=== PATIENT | female | born 1965 | race Caucasian/White ===

== ENCOUNTER → 2018-12-21 16:29 | Outpatient (CLI) | payer MEDICAID, SELFPAY ==
[2018-12-21 17:07] LABS: D-Dimer Quantitative (DVT/PE) < 0.27 FEU/ug/m (0.27-0.49)
== END ==
PROVIDERS: Family Provider Family Medicine; PCP Family Medicine; Referring Provider Family Medicine; Visit Provider Family Medicine
DX: R00.0 Tachycardia, unspecified (principal); R06.02 Shortness of breath
CPT/HCPCS: 85379

== ENCOUNTER 2018-12-23 11:53 | Observation (INO) | payer MEDICAID, SELFPAY ==
[2018-12-23] VITALS (9 sets, daily range): BP systolic 123–169; BP diastolic 71–93; PULSE 83–103; RESP 16–18; TEMP 36.2–36.9; O2SAT 95–97; BMI 31.6; BMI 32.0
--- NOTE | 2018-12-23 12:07 | EKG12_ITS ---
Test Reason : CP Blood Pressure : / mmHG Vent. Rate : 085 BPM Atrial Rate : 085 BPM P-R Int : 136 ms QRS Dur : 090 ms QT Int : 362 ms P-R-T Axes : 045 053 038 degrees QTc Int : 430 ms Normal sinus rhythm Normal ECG Confirmed by ALEJANDRA VORA, SEEMA ([id number]), movie editor ARACELY MONAHAN ([id number]) on 12/28/2018 10:46:22 AM Referred By: Sandee Joy Confirmed By:SEEMA ROBERTS MD
--- NOTE | 2018-12-23 12:12 | RAD_ITS ---
STUDY: X-RAY CHEST REASON FOR EXAM: Female, 53 years old. Chest heaviness with shortness of breath. History of asthma and COPD. TECHNIQUE: Single frontal view of the chest. COMPARISON: June 27, 2014 FINDINGS: The lungs are hyperexpanded and unchanged. There is no demonstrated pleural abnormality. There is stable borderline cardiomegaly. Normal mediastinum and yony. Normal visualized pulmonary arteries. Normal visualized aortic arch and descending thoracic aorta. Normal visualized thoracic spine. Normal visualized ribs, clavicles, and shoulders. There is no demonstrated abnormality of the visualized soft tissue structures of the upper abdomen. RAD/Chest 1 View (Portable) IMPRESSION: Stable borderline cardiomegaly with hyperexpansion. No acute finding. Electronically Signed: Alfonso Hope MD at 12:32 EDT , Service support ,
--- NOTE | 2018-12-23 12:16 | ED.DCSUM_ITS ---
- ER Visit Summary Date of Service: 12/23/18 Chief Complaint: Chest discomfort History of Present Illness: The patient is a 53 F past medical history of depression. Prior smoker quit 6 weeks ago but has about a [id number] history of smoking about a pack a day for 30 years. No known cardiac history in he rself. She had negative stress test 15 years ago but has had nothing more recently has never had a cardiac catheterization. States she felt her heart was racing on Friday saw her primary care physician who did a workup that she says was negative including labs and a negative chest x-ray. She was being set up for a Holter monitor and also an echocardiogram next week. She had today she started and heaviness on the right side of her chest. Mild dyspnea. No history of DVT or PE. No leg pain or swelling. No recent travel or surgery. No recent hospitalization. No hemoptysis. States she normally does not get chest pain. Physical Examination: Middle-aged female. No acute distress. Vital signs are stable. Initial blood pressure is 169/91. Pulse ox is 95% on room air no signs of hypoxia. She is in no distress. HEENT exam unremarkable. Neck nontender no lymphadenopathy. Lungs clear to auscultation bilaterally. Heart regular rate and rhythm no murmur. Abdomen soft and nontender. Normal bowel sounds no peritoneal signs. There is no reproducible chest wall tenderness. Patient is moving all 4 extremities. Neurovascular intact. Calves are nontender without edema or cords. Equal symmetrical radial pulses. Normal motor strength and sensation. Neurologically she is awake and alert with no focal motor deficits. Test Results: CBC normal white count of 5. Hemoglobin 13. Electrolytes unremarkable normal creatinine and gap. Troponin normal. EKG sinus rhythm rate 85 with no acute signs of SC or ischemia. Chest x-ray is read by the radiologist borderline cardiomegaly otherwise no acute process. I did review the film myself. Emergency Department Course and Treatment: Patient will undergo cardiac workup and will receive p.o. aspirin. Treatment Plan: Repeat exam patient doing well at 13 10 PM. Pain-free. She and I discussed that I do not have a specific etiology for her chest pain. Clinically it is not a PE. There is no signs of pneumothorax, pneumonia is not musculoskeletal pain. With her family history and smoking history I am still concerned this could potentially be underlying coronary disease. She is willing to be admitted for further evaluation and workup. Disposition: Admission Impression: Acute chest pain This note was generated with Had[employer] dictation software. It may contain incorrect words, spelling, and punctuation that were not noted in review of the chart prior to signing ED Disposition - Plan for ED Patient: Referrals: Brandon Harvey MD [Primary Care Provider] -
[2018-12-23] MEDS: Aspirin 81 MG TAB.CHEW 324 MG PO (12:23)
[2018-12-23 12:33] LABS: Absolute Lymphocyte Count 2.18 X10^3/ul (0.83-4.51); Absolute Neutrophil Count 2.7 X10^3/uL (2.0-7.7); Basophil# 0.08 X10^3/uL; Basophil% 1.5 % (0-1); Eosinophil# 0.07 X10^3/uL; Eosinophils% 1.3 % (0-5); Hematocrit 40.1 % (37-47); Hemoglobin 13.5 g/dl (12.0-15.0); Lymphocyte # 2.18 X10^3/ul (4.0); Lymphocyte % 40.2 % (19-41); Mean Corp Hgb Conc 33.7 g/gl (32-36); Mean Corpuscular Hgb 31.3 pg (27.0-32.0); Mean Corpuscular Volume 92.8 fL (81-99); Mean Platelet Vol. 9.1 fl (6.2-12.0); Monocyte# 0.35 X10^3/uL; Monocyte% 6.5 % (0-10); Neutrophil # 2.72 X10^3/uL (2.7-7.7); Neutrophil % 50.1 % (47-70); POSITIVE COUNT NO; POSITIVE DIFFERENTIAL NO; POSITIVE MORPHOLOGY NO; Platelet Count 250 K/mm3 (150-450); RBC Distribution Width CV 13.1 % (11.6-14.6); RBC Distribution Width SD 44.3 fl (35.1-43.9); Red Blood Count 4.32 M/mm3 (4.2-5.4); White Blood Count 5.4 K/mm3 (4.4-11.0)
[2018-12-23 12:43] LABS: Anion Gap 7 (5-15); BUN 13 mg/dL (7-18); BUN/Creat Ratio 20.5 RATIO (10-20); Calcium,Total 8.2 mg/dL (8.5-10.1); Chloride 111 mmol/L (98-107); Creatinine, Serum 0.64 mg/dL (0.55-1.02); EST Glomerular Filtration Rate 104 mL/min (>60); Est Glom Filt Rate - Afr Amer 125 mL/min (>60); Estimated Creatinine Clearance 90.42 ml/min; Glucose 92 mg/dL (74-106); Sodium Level 141 mmol/L (136-145)
--- NOTE | 2018-12-23 13:18 | HP.PCM_ITS ---
Problem List (1) Chest pain Status: Acute Qualifiers: Chest pain type: unspecified Qualified Code(s): R07.9 - Chest pain, unspecified (2) Obesity (BMI 30.0-34.9) Status: Chronic (3) COPD with asthma Status: Chronic (4) History of tobacco use Status: Chronic (5) Anxiety and depression Status: Chronic History of Present Illness Date of Admission: 12/23/18 Chief Complaint: Chest heaviness The patient is a 53 y/o F w/ PMHx: Obesity, Asthma/COPD, Anxiety and Depression, Former Tobacco use (quit 6 weeks prior) who presents to the [facility] ED on 12/23/18 with history of < 1 week history of intermittent palpitations and fluttering sensation in her chest with PCP evaluation with unremarkable work-up including labs and chest x-ray with planned Holter monitor set up as well as outpatient echocardiogram however on the day prior to current presentation patient had onset of right-sided and midsternal chest heaviness as well as tightness with radiation toward the right flank and back with some dyspnea associated with no nausea, emesis, diaphoresis, continuous in nature, initially rated 8 out of 10, 5 out of 10 upon current presentation, no worsening or alleviating factors. Work-up in the ED included T 97.1, heart rate 95, initial BP 169/91 with repeat 123/91, respiratory rate 18, 95% on room air, unremarkable CBC, unremarkable BMP aside calcium 8.2, troponin less than 0.015, chest x-ray with stable borderline cardiomegaly with hyperexpansion with no acute cardia pulmonary findings, EKG with sinus rhythm with no acute evidence of ischemia. She denies any recent prolonged travel. In the ED patient administered aspirin 324 mg p.o. x1. Past Medical History Past Medical History (Chronic Problems): Chronic Problems Obesity (BMI 30.0-34.9) (Chronic) COPD with asthma (Chronic) History of tobacco use (Chronic) Anxiety and depression (Chronic) Allergies No Known Allergies Allergy (Verified 12/23/18 11:55) Home Medications: Ambulatory Orders Medication Instructions Recorded Albuterol Inhaler [Ventolin Hfa] 2 puff INHALATION .Q2-4H #1 inhaler 06/27/14 Bupropion HCl [Wellbutrin Xl] 150 mg PO DAILY 12/23/18 Fluticasone/Salmeterol [Advair 2 puff INHALATION BID 12/23/18 100-50 Diskus] Lactobacillus Acidophilus 1 tab PO DAILY 12/23/18 [Probiotic Acidophilus] Surgical History: - - Partial hysterectomy, tonsillectomy. Psychiatric History: Anxiety, Depression DISTRIBUTION SPECIALIST History: No pertinent DISTRIBUTION SPECIALIST history Lives: Spouse/ Significant Other Smoking Status: Former smoker - Patient quit cigarette tobacco usage approximately 6 weeks prior to current presentation. Tobacco Use: Non-smoker Alcohol: Occasional Drugs: None - *Family History Maternal History Items: - - Patient notes a maternal family history of diabetes. Paternal History Items: - - Patient notes a paternal family history of several mini strokes. Review of Systems Constitutional: Reports: Fatigue. Denies: Chills, Fever, Weight Change HEENT: Denies: Head Aches, Sinus Congestion, Sinus Drainage Cardiovascular: Reports: Chest Pressure, Chest Tightness, Heaviness, Palpitations. Denies: Chest Pain, Edema, Light Headedness, Orthopnea, Syncope Respiratory: Reports: Shortness of Breath, Shortness of breath at rest, Shortness of breath upon exertion. Denies: Cough, Sputum production, Wheezing Gastrointestinal: Denies: Abdominal Pain, Nausea, Vomiting Genitourinary: Denies: Dysuria Musculoskeletal: Denies: Joint Pain, Joint Tenderness Skin: Denies: Rash, Wounds Neurological: Denies: Numbness, Tingling, Focal weakness Psychiatric: Reports: Anxiety, Depression. Denies: Homicidal Ideations, Suicidal Ideations Hematologic/ Lymphatic: Denies: Easy Bruising, Easy Bleeding VTE Information - Inpt Only VTE Present on Admission: No VTE Mechan Device Prophylaxis: SCD's VTE Pharm Prophylaxis ordered?: Yes Patient Problems: Active and Suspected Problems Chest pain (Acute) Subjective: Patient seated upright in ED bed, well-appearing, does not appear in any acute distress but notes still having some chest discomfort. Objective: Physical Examination: General: awake, alert, oriented x 3 and cooperative, seated upright in the ED bed in no apparent distress. Skin: normal color, turgor, no icterus, cyanosis. HEENT: AT/NC, EOMI, PERRLA, MMM, no carotid bruits or JVD noted. Lungs: CTA bilaterally, moderate effort, moderate decrease BL bases, no rales, ronchi or wheezing. Heart: Regular rate and rhythm; no gallop, rub audible, no reproducible discomfort with palpation. Abdomen: soft, obese, NTTP, ND, normal BS, no HSM. Extremities: no cyanosis, clubbing, or edema. Neurological: patient awake, alert, oriented x 3; cognitive function intact; pupils equally reactive to light and accomodation; cranial nerves II-XII grossly normal, moving all 4 extremities, no focal deficits, strength mildly globally decreased secondary to acute presentation. Psychiatric: affect appears normal, no acute evidence of depressive or anxiety feelings. - Physical Exam Vital Signs Temp Pulse Resp BP Pulse Ox 97.1 F L 89 17 123/91 H 96 12/23/18 11:54 12/23/18 13:11 12/23/18 13:11 12/23/18 13:11 12/23/18 13:11 Oxygen Flow Rate (L/min) 2 Oxygen Delivery Method Room Air Weight: 190 lb Body Mass Index (BMI) 31.6 Laboratory Tests Past 24 Hrs 12/23/18 12/23/18 12:18 12:18 WBC 5.4 RBC 4.32 Hgb 13.5 Hct 40.1 MCV 92.8 MCH 31.3 MCHC 33.7 RDW 13.1 RDW Differential 44.3 H Plt Count 250 MPV 9.1 Immature Gran % (Auto) 0.400 Neut % (Auto) 50.1 Lymph % (Auto) 40.2 Highland % (Auto) 6.5 Eos % (Auto) 1.3 Baso % (Auto) 1.5 H Absolute Neuts (auto) 2.7 Absolute Lymphs (auto) 2.18 Total Counted Not Reportable Sodium 141 Potassium 4.0 Chloride 111 H Carbon Dioxide 23.0 Anion Gap 7 BUN 13 Creatinine 0.64 Estim Creat Clear Calc 90.42 Est GFR (MDRD) Af Amer 125 Est GFR (MDRD) Non-Af 104 BUN/Creatinine Ratio 20.5 H Glucose 92 Calcium 8.2 L Troponin I < 0.015 Assessment/Plan All Active Problems Chest pain (Acute) The patient is a 53 y/o F w/ PMHx: Obesity, Asthma/COPD, Anxiety and Depression, Former Tobacco use (quit 6 weeks prior) who presents to the [facility] ED on 12/23/18 with history of < 1 week history of intermittent palpitations and fluttering sensation in her chest with PCP evaluation with unremarkable work-up including labs and chest x-ray with planned Holter monitor set up as well as outpatient echocardiogram however on the day prior to current presentation patient had onset of right-sided and midsternal chest heaviness. (1) Chest Pain: Work-up in the ED included T 97.1, heart rate 95, initial BP 169/91 with repeat 123/91, respiratory rate 18, 95% on room air, unremarkable CBC, unremarkable BMP aside calcium 8.2, troponin less than 0.015, chest x-ray with stable borderline cardiomegaly with hyperexpansion with no acute cardia pulmonary findings, EKG with sinus rhythm with no acute evidence of ischemia. Will admit to PCU, place on a monitored bed to assure no acute myocardial infarction with serial cardiac enzymes and EKGs. Patient is able to perform exercise and does not have LBBB, V-pacing, ST-T changes, LVH, prior PCI history and is not on digoxin thus will proceed with AM exercise stress echo test. ASA, NG, morphine. FLP in AM. Mag pending. D-dimer pending. (2) Chronic COPD/Asthma: ATC duonebs, PRN albuterol, HOB, IS parameters. (3) Recent Tobacco Cessation, Hx Prolonged Use: Encouraged continued cessation, inpatient consultation per RT. (4) Anxiety and depression: Continue home Wellbutrin regimen. (5) Obesity: Weight loss and lifestyle changes encouraged. (6) DVT prophylaxis: SCD, Lovenox. Code Visit OBSV E&M: [id number] Initial observation care L3
--- NOTE | 2018-12-23 13:24 | NURSING ---
PCU OBS WHITE CP OF UNCERTAIN ETIOLOGY
--- NOTE | 2018-12-23 13:51 | CASEMGMT ---
RN CM Assessment Introduced role of RN CM to patient.? Patient is alert, oriented and able?to participate in RN CM Assessment. ?Care providers, pharmacy, and demographics verified. Presentation: CP. Seen by PCP on Friday for heart racing, work up Neg for labs/Cxr, Sent by PCP for Holter Monitor & Echo Next week per ER MD note. Admit Dx: CP Re-Admit: No Barriers/Issues: No PCP: Brandon Harvey Specialists: None Preferred Pharmacy: [facility] Insurance: [employer] Benefit: Yes? LNOK: Mother Yessenia Poe LW/HPOA: No, Declines offered information Living Arrangements:? Lives with her Boyfriend Cecelia in a mobile home, 2 steps to enter ADL?s: Independent with ambulation and ADL's Transportation: Patient drives, Boyfriend to transport upon DC DME: None HHC: None SNF: None Goal: Home DC PLAN: Home with no anticipated needs identified at this time. Krysta Garcia RNCM
--- NOTE | 2018-12-23 14:04 | EKG12_ITS ---
Test Reason : CP REPEAT Blood Pressure : / mmHG Vent. Rate : 087 BPM Atrial Rate : 087 BPM P-R Int : 136 ms QRS Dur : 088 ms QT Int : 370 ms P-R-T Axes : 036 051 027 degrees QTc Int : 445 ms Normal sinus rhythm Normal ECG Confirmed by ALEJANDRA VORA, SEEMA ([id number]), dictionary editor ARACELY MONAHAN ([id number]) on 12/28/2018 12:30:17 PM Referred By: Sandee Joy Confirmed By:SEEMA ROBERTS MD
[2018-12-23 14:17] LABS: Magnesium 1.8 mg/dL (1.6-2.6)
[2018-12-23 14:35] LABS: D-Dimer Quantitative (DVT/PE) < 0.27 FEU/ug/m (0.27-0.49)
[2018-12-23] MEDS: Ipratropium/Albuterol Sulfate 3 ML AMPUL.NEB INHALATION (19:49)
[2018-12-23] MEDS: Famotidine 20 MG Tablet PO (21:11)
[2018-12-24] VITALS (13 sets, daily range): BP systolic 116–142; BP diastolic 70–92; PULSE 77–110; RESP 14–16; TEMP 36.5–36.8; O2SAT 93–97
[2018-12-24] MEDS: 0.9% Normal Saline 1,000 ML 100 ML IV ×2 (00:41→12:45)
[2018-12-24] MEDS: 0.9% NaCl Peripheral Flush Adult/Peds IV (00:41)
[2018-12-24 05:24] LABS: Hematocrit 38.9 % (37-47); Hemoglobin 13.4 g/dl (12.0-15.0); Mean Corp Hgb Conc 34.4 g/gl (32-36); Mean Corpuscular Hgb 31.8 pg (27.0-32.0); Mean Corpuscular Volume 92.2 fL (81-99); Mean Platelet Vol. 9.3 fl (6.2-12.0); Platelet Count 257 K/mm3 (150-450); RBC Distribution Width CV 12.9 % (11.6-14.6); RBC Distribution Width SD 42.9 fl (35.1-43.9); Red Blood Count 4.22 M/mm3 (4.2-5.4); White Blood Count 6.9 K/mm3 (4.4-11.0)
[2018-12-24 05:26] LABS: Scan Indicated on CBC? Y/N NO
[2018-12-24 05:31] LABS: International Normalized Ratio 0.9; Prothrombin Time (Protime)PT. 12.4 SECONDS (11.7-14.9)
[2018-12-24 05:32] LABS: Partial Thromboplast Time 26.1 Seconds (24.1-36.2)
[2018-12-24 05:41] LABS: ALB/GLOB Ratio 1.2 RATIO (0.9-2.4); AST(SGOT) 16 U/L (15-37); Alanine Aminotransfer ALT/SGPT 27 U/L (13-56); Albumin, Serum 3.5 g/dL (3.2-5.0); Alkaline Phosphatase 88 U/L (45-117); Anion Gap 5 (5-15); BUN 13 mg/dL (7-18); BUN/Creat Ratio 20.3 RATIO (10-20); Calcium,Total 8.6 mg/dL (8.5-10.1); Chloride 111 mmol/L (98-107); Cholesterol 180 mg/dL (200); Creatinine, Serum 0.64 mg/dL (0.55-1.02); EST Glomerular Filtration Rate 103 mL/min (>60); Est Glom Filt Rate - Afr Amer 124 mL/min (>60); Estimated Creatinine Clearance 90.42 ml/min; Glucose 97 mg/dL (74-106); High Density Lipoprotein 99 mg/dL; Potassium 3.8 mmol/L (3.5-5.1); Protein, Total 6.5 g/dL (6.4-8.2); Sodium Level 143 mmol/L (136-145); Triglycerides 106 mg/dL; Very Low Density Lipoprotein 21 mg/dL (5-40)
--- NOTE | 2018-12-24 05:55 | EKG12_ITS ---
Test Reason : AM EKG Blood Pressure : / mmHG Vent. Rate : 073 BPM Atrial Rate : 073 BPM P-R Int : 148 ms QRS Dur : 082 ms QT Int : 382 ms P-R-T Axes : 042 040 034 degrees QTc Int : 420 ms Normal sinus rhythm Normal ECG Confirmed by ALEJANDRA VORA, SEEMA ([id number]), pictures editor ARACELY MONAHAN ([id number]) on 12/28/2018 12:28:56 PM Referred By: Sandee Joy Confirmed By:SEEMA ROBERTS MD
[2018-12-24] MEDS: Aspirin E.C. 81 MG Tablet PO (05:56)
[2018-12-24] MEDS: Ipratropium/Albuterol Sulfate 3 ML AMPUL.NEB INHALATION (07:13)
[2018-12-24] MEDS: buPROPion (XL) 150 MG TABLET.XL PO (09:17)
[2018-12-24] MEDS: Famotidine 20 MG Tablet PO (09:17)
--- NOTE | 2018-12-24 09:52 | CASEMGMT ---
According to the [facility] website, the following are in-network tertiary facilities: [facility], [place], [place], [facility], [facility], [facility], and . Brayan OTT CM
--- NOTE | 2018-12-24 13:01 | PN_ITS ---
<Elsa Coates - Last Filed: 12/24/18 13:01> Subjective: Patient seen and examined. Denies further chest pain overnight. Denies palpitations, shortness of breath. - Physical Exam General: Alert, Oriented x3, Cooperative HEENT: Atraumatic, PERRLA, EOMI, Normocephalic Neck: Supple, No JVD, Negative Carotid Bruits Lungs: Clear to auscultation, Diminished Cardiovascular: Regular rate, Regular Rhythm, Normal S1, Normal S2, No murmurs Abdomen: Bowel Sounds Present, Soft, Non Tender, Non-Distended Extremities: No clubbing, No cyanosis, No edema, Capillary Refill Less than 3 Seconds Skin: No rashes, No breakdown Musculoskeletal: No Tenderness to Palpation of Joints or Extremities Neurological: Cranial nerves II-XII grossly intact, Neuro grossly intact Psych/Mental Status: Normal Affect, Appropriate Vital Signs Temp Pulse Resp BP Pulse Ox 98.3 F 102 H 16 118/72 96 12/24/18 09:15 12/24/18 09:15 12/24/18 09:15 12/24/18 09:15 12/24/18 09:15 Oxygen Flow Rate (L/min) 2 Oxygen Delivery Method Room Air Weight: 192 lb 7.417 oz Body Mass Index (BMI) 32.0 Intake and Output for Last 24 Hours 12/22/18 12/23/18 12/24/18 23:59 23:59 23:59 Intake Total 720 / 720 542 / 542 Balance 720 / 720 542 / 542 Laboratory Tests Past 24 Hrs 12/23/18 12/23/18 12/23/18 12:18 12:18 15:58 WBC RBC Hgb Hct MCV MCH MCHC RDW RDW Differential Plt Count MPV PT INR APTT D-Dimer Quant (PE/DVT) < 0.27 L Sodium Potassium Chloride Carbon Dioxide Anion Gap BUN Creatinine Estim Creat Clear Calc Est GFR (MDRD) Af Amer Est GFR (MDRD) Non-Af BUN/Creatinine Ratio Glucose Calcium Magnesium 1.8 Total Bilirubin AST ALT Alkaline Phosphatase Troponin I < 0.015 Total Protein Albumin Globulin Albumin/Globulin Ratio Triglycerides Cholesterol LDL Cholesterol VLDL Cholesterol HDL Cholesterol 12/23/18 12/24/18 12/24/18 18:44 05:05 05:05 WBC 6.9 RBC 4.22 Hgb 13.4 Hct 38.9 MCV 92.2 MCH 31.8 MCHC 34.4 RDW 12.9 RDW Differential 42.9 Plt Count 257 MPV 9.3 PT INR APTT D-Dimer Quant (PE/DVT) Sodium 143 Potassium 3.8 Chloride 111 H Carbon Dioxide 27.0 Anion Gap 5 BUN 13 Creatinine 0.64 Estim Creat Clear Calc 90.42 Est GFR (MDRD) Af Amer 124 Est GFR (MDRD) Non-Af 103 BUN/Creatinine Ratio 20.3 H Glucose 97 Calcium 8.6 Magnesium Total Bilirubin 0.70 AST 16 ALT 27 Alkaline Phosphatase 88 Troponin I < 0.015 Total Protein 6.5 Albumin 3.5 Globulin 3.0 Albumin/Globulin Ratio 1.2 Triglycerides 106 Cholesterol 180 LDL Cholesterol 60 VLDL Cholesterol 21 HDL Cholesterol 99 12/24/18 05:05 WBC RBC Hgb Hct MCV MCH MCHC RDW RDW Differential Plt Count MPV PT 12.4 INR 0.9 APTT 26.1 D-Dimer Quant (PE/DVT) Sodium Potassium Chloride Carbon Dioxide Anion Gap BUN Creatinine Estim Creat Clear Calc Est GFR (MDRD) Af Amer Est GFR (MDRD) Non-Af BUN/Creatinine Ratio Glucose Calcium Magnesium Total Bilirubin AST ALT Alkaline Phosphatase Troponin I Total Protein Albumin Globulin Albumin/Globulin Ratio Triglycerides Cholesterol LDL Cholesterol VLDL Cholesterol HDL Cholesterol Medical Necessity - Tobacco Use Smoking Status: Former smoker Tobacco Use: Non-smoker Assessment/Plan All Active Problems Chest pain (Acute) 1. Chest pain/abnormal stress test-EKG without ST-T changes. Troponin negative. Patient underwent stress echo which was positive for exercise-induced echocardiographic changes suggestive of ischemia in the anterior wall and apex. Cardiology subsequently consulted. Patient to undergo cardiac catheterization this afternoon. Further management per cardiology. Continue aspirin. 2. Chronic COPD/asthma-no acute exacerbation. As needed albuterol aerosol. 3. Recent tobacco cessation-reports she quit 6 weeks ago. Encouraged continued cessation. 4. Anxiety/depression-continue home Wellbutrin regimen. 5. Obesity-encourage diet lifestyle modifications. DVT prophylaxis-Lovenox subcu This patient was seen by VIVEK Brink under the supervision of Dr. Slater. <Naseem Slater - Last Filed: 12/24/18 17:24> Subjective: Please see physical exam findings and note in the discharge summary - Physical Exam Vital Signs Temp Pulse Resp BP Pulse Ox 97.7 F L 83 14 116/81 H 94 12/24/18 15:05 12/24/18 15:50 12/24/18 15:50 12/24/18 15:50 12/24/18 15:50 Oxygen Flow Rate (L/min) 2 Oxygen Delivery Method Room Air Weight: 192 lb 7.417 oz Body Mass Index (BMI) 32.0 Intake and Output for Last 24 Hours 12/22/18 12/23/18 12/24/18 23:59 23:59 23:59 Intake Total 720 / 720 782 / 782 Balance 720 / 720 782 / 782 Laboratory Tests Past 24 Hrs 12/23/18 12/24/18 12/24/18 18:44 05:05 05:05 WBC 6.9 RBC 4.22 Hgb 13.4 Hct 38.9 MCV 92.2 MCH 31.8 MCHC 34.4 RDW 12.9 RDW Differential 42.9 Plt Count 257 MPV 9.3 PT INR APTT Sodium 143 Potassium 3.8 Chloride 111 H Carbon Dioxide 27.0 Anion Gap 5 BUN 13 Creatinine 0.64 Estim Creat Clear Calc 90.42 Est GFR (MDRD) Af Amer 124 Est GFR (MDRD) Non-Af 103 BUN/Creatinine Ratio 20.3 H Glucose 97 Calcium 8.6 Total Bilirubin 0.70 AST 16 ALT 27 Alkaline Phosphatase 88 Troponin I < 0.015 Total Protein 6.5 Albumin 3.5 Globulin 3.0 Albumin/Globulin Ratio 1.2 Triglycerides 106 Cholesterol 180 LDL Cholesterol 60 VLDL Cholesterol 21 HDL Cholesterol 99 12/24/18 05:05 WBC RBC Hgb Hct MCV MCH MCHC RDW RDW Differential Plt Count MPV PT 12.4 INR 0.9 APTT 26.1 Sodium Potassium Chloride Carbon Dioxide Anion Gap BUN Creatinine Estim Creat Clear Calc Est GFR (MDRD) Af Amer Est GFR (MDRD) Non-Af BUN/Creatinine Ratio Glucose Calcium Total Bilirubin AST ALT Alkaline Phosphatase Troponin I Total Protein Albumin Globulin Albumin/Globulin Ratio Triglycerides Cholesterol LDL Cholesterol VLDL Cholesterol HDL Cholesterol Assessment/Plan This patient was seen in conjunction with Elsa PLAZA. I have independently interviewed and examined the patient and reviewed pertinent history, examination findings, laboratory and plan of management. I have reviewed the note and agree with the documented findings with the few additional points. Please see discharge summary today I have discussed my assessment with ICE HOUSE SUPERVISOR, Elsa and orders have been reviewed.
--- NOTE | 2018-12-24 13:39 | CON.PCM_ITS ---
Problem List (1) Chest pain Status: Acute Qualifiers: Chest pain type: unspecified Qualified Code(s): R07.9 - Chest pain, unspecified Reason for Consult Date of Consultation: 12/24/18 Reason for Consultation: Chest pain and abnormal stress test History of Present Illness: The patient is a 53 y/o F w/ PMHx: Obesity, Asthma/COPD, Anxiety and Depression, Former Tobacco use (quit 6 weeks prior) who presents to the [facility] ED on 12/23/18 with history of < 1 week history of intermittent palpitations and fluttering sensation in her chest with PCP evaluation with unremarkable work-up including labs and chest x-ray with planned Holter monitor set up as well as outpatient echocardiogram however on the day prior to current presentation patient had onset of right-sided and midsternal chest heaviness as well as tightness. Patient had a stress echo which revealed apical and anterior hypokinesis. EF was preserved on the echo. Past Medical History Allergies/Adverse Reactions: Allergies No Known Allergies Allergy (Verified 12/23/18 11:55) Home Medications: Ambulatory Orders Medication Instructions Recorded Albuterol Inhaler [Ventolin Hfa] 2 puff INHALATION .Q2-4H #1 inhaler 06/27/14 Bupropion HCl [Wellbutrin Xl] 150 mg PO DAILY 12/23/18 Fluticasone/Salmeterol [Advair 2 puff INHALATION BID 12/23/18 100-50 Diskus] Lactobacillus Acidophilus 1 tab PO DAILY 12/23/18 [Probiotic Acidophilus] Past Medical History (Chronic Problems): Chronic Problems Obesity (BMI 30.0-34.9) (Chronic) COPD with asthma (Chronic) History of tobacco use (Chronic) Anxiety and depression (Chronic) Surgical History: - - Partial hysterectomy, tonsillectomy. Psychiatric History: Anxiety, Depression PRODUCT INFO SPECIALIST History: No pertinent PRODUCT INFO SPECIALIST history - *Family History Maternal History Items: - - Patient notes a maternal family history of diabetes. Paternal History Items: - - Patient notes a paternal family history of several mini strokes. Lives: Spouse/ Significant Other Smoking Status: Former smoker Tobacco Use: Non-smoker Alcohol: Occasional Drugs: None Review of Systems - Review of Systems General: Denies: Fever, Night Sweats, Fatigue Cardiovascular: Reports: Chest Discomfort. Denies: Orthopnea, PND, Peripheral Edema, Lightheadedness, Dizziness, Near Syncope, Syncope Respiratory: Denies: Cough, Sputum Production, Hemoptysis Gastrointestinal: Denies: Hematemesis, Hematochezia, Melena Genitourinary: Denies: Dysuria, Hematuria Skin: Denies: Rash Psychiatric: Denies: Anxiety Objective: Vital Signs Temp Pulse Resp BP Pulse Ox 98.3 F 102 H 16 118/72 96 12/24/18 09:15 12/24/18 09:15 12/24/18 09:15 12/24/18 09:15 12/24/18 09:15 Oxygen Flow Rate (L/min) 2 Oxygen Delivery Method Room Air Weight: 192 lb 7.417 oz Body Mass Index (BMI) 32.0 Intake and Output for Last 24 Hours 12/22/18 12/23/18 12/24/18 23:59 23:59 23:59 Intake Total 720 / 720 542 / 542 Balance 720 / 720 542 / 542 General: Awake, Alert, Oriented x 3 HEENT: PERRL, EOMI, Sclera Non Icteric Neck: Supple, Good ROM, No Lymph Node Enlargement Lungs: Clear to auscultation Cardiovascular: Regular Rhythm, Normal S1, Normal S2, No Murmurs, No Rubs, No Gallops Vascular: Normal Radial Pulses, Normal Dorsalis Pedal Pulse, Normal Posterior Tibial Pulses Abdomen: Bowel Sounds Present, Soft, Non Tender, No HSM, No Organomegaly Extremities: No Cyanosis, No Clubbing, No edema Neurological: No Focal Motor or Sensory Deficit 12/23/18 12:18: Magnesium 1.8 12/23/18 12:18: D-Dimer Quant (PE/DVT) < 0.27 L 12/23/18 15:58: Troponin I < 0.015 12/23/18 18:44: Troponin I < 0.015 12/24/18 05:05: WBC 6.9, RBC 4.22, Hgb 13.4, Hct 38.9, MCV 92.2, MCH 31.8, MCHC 34.4, RDW 12.9, RDW Differential 42.9, Plt Count 257, MPV 9.3 12/24/18 05:05: Sodium 143, Potassium 3.8, Chloride 111 H, Carbon Dioxide 27.0, Anion Gap 5, BUN 13, Creatinine 0.64, Est GFR (MDRD) Af Amer 124, Est GFR (MDRD) Non-Af 103, BUN/Creatinine Ratio 20.3 H, Glucose 97, Calcium 8.6, Total Bilirubin 0.70, Triglycerides 106, Cholesterol 180, LDL Cholesterol 60, VLDL Cholesterol 21, HDL Cholesterol 99 12/24/18 05:05: PT 12.4, INR 0.9, APTT 26.1 Rhythm: EKG: ECHO: Stress Test: Hypokinesis of the anterior wall and apex during stress suggestive of ischemia in this region. Cardiac Cath: PCI: CT Surgery: Holter monitor: EPS: PPM: CXR: Chest CT Scan: Assessment/Plan 1. Chest pain: Patient's chest pain is concerning. Stress test was suggestive of ischemia in the LAD territory. We will proceed with cardiac catheterization. Risks and benefits of the procedure was discussed with the patient in detail. Patient understands the risks and benefits and wishes to proceed.
--- NOTE | 2018-12-24 14:50 | DCINST_ITS ---
- Discharge Diagnoses Current Active Problems: Current Active and Chronic Problems Chest pain (Acute) Obesity (BMI 30.0-34.9) (Chronic) COPD with asthma (Chronic) History of tobacco use (Chronic) Anxiety and depression (Chronic) You will use the following diet at home:: No restrictions Discharge Activity: Return to Normal Activity, - - Follow post cath instructions. Call your doctor if your incision/area has: Continuous Slow Oozing, Sudden Increased Bleeding, Increased Pain/ Swelling, Increased Redness, Foul Smelling Discharge, Swelling at the incision site Call your doctor if you observe: Fever of 101 or Higher, Shortness of breath, Di zziness, Fainting spells, Chest pain Allergies/Adverse Reactions: Allergies No Known Allergies Allergy (Verified 12/23/18 11:55) Medications to take at Discharge Albuterol Inhaler [Ventolin Hfa] 2 puff INHALATION .Q2-4H #1 inhaler 06/27/14 Bupropion HCl [Wellbutrin Xl] 150 mg PO DAILY 12/23/18 Fluticasone/Salmeterol [Advair 100-50 Diskus] 2 puff INHALATION BID 12/23/18 Lactobacillus Acidophilus [Probiotic Acidophilus] 1 tab PO DAILY 12/23/18 Primary Care Physician: Brandon Harvey MD [Primary Care Provider] - Please follow up with your Primary Care Physician in: 1 Week Test Results: Test results from this visit will be discussed in further detail at your follow- up appointment, if applicable. Proposed Discharge Date: 12/24/18
--- NOTE | 2018-12-24 15:01 | DS.PCM_ITS ---
<Elsa Coates - Last Filed: 12/24/18 15:01> Discharge Date and Diagnosis Date of Admission: 12/23/18 Date of Discharge: 12/24/18 - Primary Discharge Diagnosis Active and Suspected Problems 1. Chest pain, ACS ruled out 2. Chronic COPD/asthma 3. Recent tobacco cessation 4. Anxiety/depression 5. Obesity - Secondary Discharge Diagnosis Chronic Problems Obesity (BMI 30.0-34.9) (Chronic) COPD with asthma (Chronic) History of tobacco use (Chronic) Anxiety and depression (Chronic) Hospital Course and Treatment Imaging Results: Diagnostic Data Chest X-Ray 12/23/18 12:12 IMPRESSION: Stable borderline cardiomegaly with hyperexpansion. No acute finding. Electronically Signed: Alfonso Hope MD at 12:32 EDT , Service support , Dr. Lewis- Cardiology Operations: None Procedures: Cardiac catheterization, - - Stress echo Summary of Care Provided: The patient is a 53 year old F admitted for 2419 due to chest pain. 1. Chest pain/abnormal stress test, ACS ruled out-EKG without ST-T changes. Troponin negative. Patient underwent stress echo which was positive for exercise-induced echocardiographic changes suggestive of ischemia in the anterior wall and apex. Cardiology subsequently consulted. Patient underwent cardiac catheterization which showed normal coronary arteries. Lipid panel within normal limits. Follow-up with primary care physician in 1 week. Patient reports she previously had a event monitor scheduled as outpatient due to recurrent palpitations. Recommend continuing with these plans. 2. Chronic COPD/asthma-no acute exacerbation. 3. Recent tobacco cessation-reports she quit 6 weeks ago. Encouraged continued cessation. 4. Anxiety/depression-continue home Wellbutrin regimen. 5. Obesity-encourage diet lifestyle modifications. General: Alert, Oriented x3, Cooperative HEENT: Atraumatic, PERRLA, EOMI, Normocephalic Neck: Supple, No JVD, Negative Carotid Bruits Lungs: Clear to auscultation, Diminished Cardiovascular: Regular rate, Regular Rhythm, Normal S1, Normal S2, No murmurs Abdomen: Bowel Sounds Present, Soft, Non Tender, Non-Distended Extremities: No clubbing, No cyanosis, No edema, Capillary Refill Less than 3 Seconds Skin: No rashes, No breakdown Musculoskeletal: No Tenderness to Palpation of Joints or Extremities Neurological: Cranial nerves II-XII grossly intact, Neuro grossly intact Psych/Mental Status: Normal Affect, Appropriate Patient seen and examined prior to discharge. Physical assessment as noted above. Patient is stable for discharge with follow up recommendations as noted above. This patient was seen by VIVEK Brink under the supervision of Dr. Slater. - Physical Exam Vital Signs Temp Pulse Resp BP Pulse Ox 98.3 F 84 16 127/85 H 93 12/24/18 09:15 12/24/18 14:40 12/24/18 14:40 12/24/18 14:40 12/24/18 14:40 Oxygen Flow Rate (L/min) 2 Oxygen Delivery Method Room Air Weight: 192 lb 7.417 oz Body Mass Index (BMI) 32.0 Intake and Output for Last 24 Hours 12/22/18 12/23/18 12/24/18 23:59 23:59 23:59 Intake Total 720 / 720 782 / 782 Balance 720 / 720 782 / 782 Laboratory Tests Past 24 Hrs 12/23/18 12/23/18 12/24/18 15:58 18:44 05:05 WBC 6.9 RBC 4.22 Hgb 13.4 Hct 38.9 MCV 92.2 MCH 31.8 MCHC 34.4 RDW 12.9 RDW Differential 42.9 Plt Count 257 MPV 9.3 PT INR APTT Sodium Potassium Chloride Carbon Dioxide Anion Gap BUN Creatinine Estim Creat Clear Calc Est GFR (MDRD) Af Amer Est GFR (MDRD) Non-Af BUN/Creatinine Ratio Glucose Calcium Total Bilirubin AST ALT Alkaline Phosphatase Troponin I < 0.015 < 0.015 Total Protein Albumin Globulin Albumin/Globulin Ratio Triglycerides Cholesterol LDL Cholesterol VLDL Cholesterol HDL Cholesterol 12/24/18 12/24/18 05:05 05:05 WBC RBC Hgb Hct MCV MCH MCHC RDW RDW Differential Plt Count MPV PT 12.4 INR 0.9 APTT 26.1 Sodium 143 Potassium 3.8 Chloride 111 H Carbon Dioxide 27.0 Anion Gap 5 BUN 13 Creatinine 0.64 Estim Creat Clear Calc 90.42 Est GFR (MDRD) Af Amer 124 Est GFR (MDRD) Non-Af 103 BUN/Creatinine Ratio 20.3 H Glucose 97 Calcium 8.6 Total Bilirubin 0.70 AST 16 ALT 27 Alkaline Phosphatase 88 Troponin I Total Protein 6.5 Albumin 3.5 Globulin 3.0 Albumin/Globulin Ratio 1.2 Triglycerides 106 Cholesterol 180 LDL Cholesterol 60 VLDL Cholesterol 21 HDL Cholesterol 99 Discharge Diet: No Restrictions Discharge Activity: Return to Normal Activity, - - Follow post cath instructions. Call your doctor if your incision/area has: Continuous Slow Oozing, Sudden Increased Bleeding, Increased Pain/ Swelling, Increased Redness, Foul Smelling Discharge, Swelling at the incision site Call your doctor if you observe: Fever of 101 or Higher, Shortness of breath, Dizziness, Fainting spells, Chest pain Home Medications: Medications to take at Discharge Albuterol Inhaler [Ventolin Hfa] 2 puff INHALATION .Q2-4H #1 inhaler 06/27/14 Bupropion HCl [Wellbutrin Xl] 150 mg PO DAILY 12/23/18 Fluticasone/Salmeterol [Advair 100-50 Diskus] 2 puff INHALATION BID 12/23/18 Lactobacillus Acidophilus [Probiotic Acidophilus] 1 tab PO DAILY 12/23/18 Primary Care Physician: Brandon Harvey MD [Primary Care Provider] - Please follow up with your Primary Care Physician in: 1 Week Disposition: Home Minutes spent on discharge:: 35 Patient Condition:: Stable Medical Necessity - Tobacco Use Smoking Status: Former smoker Tobacco Use: Non-smoker Meaningful Use Info Meaningful Use Diagnoses (Choose all that apply): None applicable <Naseem Slater - Last Filed: 12/24/18 17:10> Discharge Date and Diagnosis - Secondary Discharge Diagnosis Chronic Problems Obesity (BMI 30.0-34.9) (Chronic) COPD with asthma (Chronic) History of tobacco use (Chronic) Anxiety and depression (Chronic) Hospital Course and Treatment Summary of Care Provided: The patient is a 53 year old F with history of COPD/emphysema, chronic nicotine use quit 6 weeks ago was admitted with chest pain. Serial troponins are negative. EKG showed no significant ST-T changes active ischemia. Patient had exercise-induced stress echo suggestive of ischemia in anterior wall and apex. Furthermore, patient had cardiac catheter showed normal coronary arteries. Lipid panel within normal limits. Patient has been discharged home. Follow with PCP in 1 week. [] Subjective: Seen and examined. Patient has intermittent chest pain on and off for last 2 months. Patient has seen PCP Dr. [place] and he did EKG and was supposed to have a stress test. In the meantime she got chest pain while driving car on the day of admission therefore was admitted. She also gets easily short of breath. Furthermore, her stress echo test was done which was reported abnormal and patient also got short of breath. After that patient was taken for cardiac angiogram. - Physical Exam General: Alert, Oriented x3, Cooperative HEENT: Atraumatic, PERRLA, EOMI, Normocephalic Neck: Supple, No JVD, Negative Carotid Bruits Lungs: Clear to auscultation, No rhonchi, No wheeze, No rales, Diminished Cardiovascular: Regular rate, Regular Rhythm, Normal S1, Normal S2, No murmurs Abdomen: Bowel Sounds Present, Soft, Non Tender, Non-Distended Extremities: No edema, Capillary Refill Less than 3 Seconds Skin: No rashes, No breakdown Musculoskeletal: No Tenderness to Palpation of Joints or Extremities, Arthritic Changes Lymphatic: No Cervical, Supraclavicular, or Inguinal Adenopathy Neurological: Cranial nerves II-XII grossly intact, Deep Tendon Reflexes 2+/4 a nd Symmetrical, Neuro grossly intact Psych/Mental Status: Normal Affect, Appropriate Vital Signs Temp Pulse Resp BP Pulse Ox 97.7 F L 83 14 116/81 H 94 12/24/18 15:05 12/24/18 15:50 12/24/18 15:50 12/24/18 15:50 12/24/18 15:50 Oxygen Flow Rate (L/min) 2 Oxygen Delivery Method Room Air Weight: 192 lb 7.417 oz Body Mass Index (BMI) 32.0 Intake and Output for Last 24 Hours 12/22/18 12/23/18 12/24/18 23:59 23:59 23:59 Intake Total 720 / 720 782 / 782 Balance 720 / 720 782 / 782 Laboratory Tests Past 24 Hrs 12/23/18 12/24/18 12/24/18 18:44 05:05 05:05 WBC 6.9 RBC 4.22 Hgb 13.4 Hct 38.9 MCV 92.2 MCH 31.8 MCHC 34.4 RDW 12.9 RDW Differential 42.9 Plt Count 257 MPV 9.3 PT INR APTT Sodium 143 Potassium 3.8 Chloride 111 H Carbon Dioxide 27.0 Anion Gap 5 BUN 13 Creatinine 0.64 Estim Creat Clear Calc 90.42 Est GFR (MDRD) Af Amer 124 Est GFR (MDRD) Non-Af 103 BUN/Creatinine Ratio 20.3 H Glucose 97 Calcium 8.6 Total Bilirubin 0.70 AST 16 ALT 27 Alkaline Phosphatase 88 Troponin I < 0.015 Total Protein 6.5 Albumin 3.5 Globulin 3.0 Albumin/Globulin Ratio 1.2 Triglycerides 106 Cholesterol 180 LDL Cholesterol 60 VLDL Cholesterol 21 HDL Cholesterol 99 // 05:05 WBC RBC Hgb Hct MCV MCH MCHC RDW RDW Differential Plt Count MPV PT 12.4 INR 0.9 APTT 26.1 Sodium Potassium Chloride Carbon Dioxide Anion Gap BUN Creatinine Estim Creat Clear Calc Est GFR (MDRD) Af Amer Est GFR (MDRD) Non-Af BUN/Creatinine Ratio Glucose Calcium Total Bilirubin AST ALT Alkaline Phosphatase Troponin I Total Protein Albumin Globulin Albumin/Globulin Ratio Triglycerides Cholesterol LDL Cholesterol VLDL Cholesterol HDL Cholesterol Code Visit OBSV E&M: 16642 Observation care discharge
--- NOTE | 2019-02-03 14:55 | CL.D_ITS ---
Patient Name: MIMI PACHECO Study Date: 12/24/2018 Performing: Tiffany Lewis MD Ht: 65 inches 165 cm : 1965 Wt: 192.1 lbs 87 kg Age: 53 Gender: female BSA: 1.94 PROCEDURE(S) PERFORMED [id number]/COR CLINICAL PROFILE AND INDICATIONS Indications: New Onset Angina <= 2 months Heart Failure: None Stress/Imaging Stress Echocardiogram: Yes Result: Positive Intermediate RiskStress Echocardiogram : Positive Intermediate Risk CAD Presentations: Unstable angina. CONCLUSIONS Normal coronary arteries RECOMMENDATIONS DESCRIPTION OF PROCEDURE The patient arrived to the procedure lab. The risks and benefits of the procedure as well as a full d escription of our services here and current unavailability of surgical backup were fully explained to the patient and/or their significant other prior to the catheterization. The Timeout was completed, verifying the correct patient and procedure. The patient's procedural site was prepped and draped in the usual fashion. Local anesthetic was given subcutaneously to right radial region with Lidocaine 2% . Using a modified Seldinger technique, arterial access was obtained via the right radial artery, a 6 Fr sheath was inserted. LV to AO pullback pressures were then recorded. Left Coronary Artery selecti ve angiography was performed in multiple views using a 5 Fr. JL3.5 catheter. Right Coronary Artery se lective angiography was then performed in multiple views using a 5 Fr. JR 4 catheter.The arterial she ath was pulled and a TR Band was applied for hemostasis 10cc air inserted CORONARY ANGIOGRAPHY DOMINANCE: Right Dominant LEFT HEART ASSESSMENT Left Ventricular Ejection Fraction: Not assessed LEFT MAIN: Angiographically normal LEFT ANTERIOR DECENDING ARTERY: Angiographically normal CIRCUMFLEX ARTERY: Angiographically normal RIGHT CORONARY ARTERY: Angiographically normal VALVE FINDINGS: No Aortic Valve Stenosis COMPLICATIONS No Complications PROCEDURE MEDICATIONS Fentanyl 50 mcg IV Versed 1 mg IV Oxygen: 2 L/min via nasal cannula Heparin given IA 12/24/2018 13:11:43 Verapamil 2.5mg, Ntg 200mcgs, 3000 units of Heparin given IA 12/24/2018 13:11:43 SUMMARY OF HEMODYNAMIC DATA Time AIR REST ECG 12:54:17 LV 180/-28, 4 13:13:55 LV 175/-19, 3 13:14:02 LVp 173/-27, 1 13:14:11 AOp 144/94 (113) 13:14:16 AO 132/86 (104) 13:14:22 Signed By Tiffany Lewis MD On 12/25/2018 12:36:29 Tiffany Lewis MD
== END 2018-12-24 14:50 | disposition home or self-care (01) ==
LOC: ED 12:34 → PCU 13:47
PROVIDERS: Admitting Provider Family Medicine; Emergency Provider Emergency Medicine; Family Provider Family Medicine; PCP Family Medicine; Referring Provider Family Medicine; Visit Provider Internal Medicine
DX: R07.89 Other chest pain (principal); F32.9 Major depressive disorder, single episode, unspecified; J44.9 Chronic obstructive pulmonary disease, unspecified; F41.9 Anxiety disorder, unspecified; E66.9 Obesity, unspecified; Z68.32 Body mass index [BMI] 32.0-32.9, adult; Z71.3 Dietary counseling and surveillance; Z87.891 Personal history of nicotine dependence; Z79.899 Other long term (current) drug therapy
CPT/HCPCS: 36415; 71045; 80048; 80053; 80061; 83735; 84484; 85025; 85027; 85379; 85610; 85730; 93005; 93017; 93350; 93454; 94640; 96360; 96361; 99152; 99218; 99283; J7030; Q9957; A4216; C1769; C1894; C8928; G0378; Q9967